=== PATIENT | female | born 1945 | race Caucasian/White ===

== ENCOUNTER → 2021-07-27 | Outpatient (CLI) | payer OTHER ==
[~2021-07-27] VITALS: Ht 154.9 cm; Wt 81.6 kg
[~2021-07-27] MED LIST: ACETAMINOPHEN325 MG PO; ASPIRIN EC81 MG PO; AUGMENTIN 875-1 EACH PO; CLOPIDOGREL75 MG PO; HUMIRA40 MG/0.4 SQ; IMDUR ER TAB 6060 MG PO; LOPRESSOR50 MG PO; LORTAB 7.5-3251 EACH PO; NEXIUM40 MG PO; PERCOCET 5/325 T1 EA PO; PLETAL 100 MG100 MG PO; RANEXA1000 MG PO; SYNTHROID25 MCG PO; TUMS DUAL ACTI1 EACH PO; VITAMIN D21250 MCG PO; ZOCOR10 MG PO; ZOFRAN ODT 4 MG4 MG PO
== END ==
LOC: OPSV 11:47
DX: M81.0 Age-related osteoporosis without current pathological fracture (principal)
CPT/HCPCS: 96365; J3489

== ENCOUNTER → 2021-12-18 | Day surgery (SDC) | payer OTHER ==
[~2021-12-18] MED LIST changes: +ESCITALOPRAM OXA5 MG PO; +LEVOTHYROXINE50 MC1 PO; +PRAVASTATIN SOD10 MG PO
== END | disposition home or self-care (01) ==
LOC: OR 05:41
DX: K57.30 Diverticulosis of large intestine without perforation or abscess without bleeding (principal); K29.50 Unspecified chronic gastritis without bleeding; K31.9 Disease of stomach and duodenum, unspecified; K21.9 Gastro-esophageal reflux disease without esophagitis; I10 Essential (primary) hypertension; E78.5 Hyperlipidemia, unspecified; E66.01 Morbid (severe) obesity due to excess calories; Z87.891 Personal history of nicotine dependence; Z79.02 Long term (current) use of antithrombotics/antiplatelets; Z79.899 Other long term (current) drug therapy; Z20.822 Contact with and (suspected) exposure to COVID-19
CPT/HCPCS: J2704; J7030